=== PATIENT | female | born 1990 | race American Indian/Alaskan Native ===

== ENCOUNTER 2018-01-18 11:56 | Emergency (ER) | payer OTHER ==
[~2018-01-18] VITALS: Ht 180.3 cm; Wt 63.5 kg
[~2018-01-18 11:56] MED LIST: BENADRYL25 MG PO; Bactrim Ds Tab1 EACH PO; CLIN300 PO; ESOM20 PO; IBUP800 PO; K-Dur10 MEQ PO; NAPR500 PO; OXYACE5T PO; Omeprazole20 M1; PROACE100 PO; PROM25 PO; Pepcid20 MG PO; Pepcid40 MG PO; Percocet 5-3251 EACH PO; Prednisone50 MG PO; RXCLIN PO; RXOXYACE PO; SERT50 PO; SUCR1 PO; Triamcinolone A15 G3 EXT; Ultram50 MG PO; Zofran Odt4 MG SL; Zofran Odt8 MG SL; [UNRECOGNIZED DRUG - REMARK]
== END 2018-01-18 13:00 | disposition home or self-care (01) ==
LOC: ER 11:56
DX: S20.212A Contusion of left front wall of thorax, initial encounter (principal); W22.8XXA Striking against or struck by other objects, initial encounter; Z88.0 Allergy status to penicillin; Z88.5 Allergy status to narcotic agent; F17.210 Nicotine dependence, cigarettes, uncomplicated
CPT/HCPCS: 71100; 99283

== ENCOUNTER 2018-01-23 12:18 | Emergency (ER) | payer OTHER ==
[~2018-01-23] VITALS: Ht 152.4 cm; Wt 63.5 kg
[2018-01-23] MEDS ORDERED: Percocet 5-3251 EACH PO (13:29)
== END 2018-01-23 13:48 | disposition home or self-care (01) ==
LOC: ER 12:18
DX: S29.9XXA Unspecified injury of thorax, initial encounter (principal); F17.210 Nicotine dependence, cigarettes, uncomplicated; Z88.5 Allergy status to narcotic agent; Z88.0 Allergy status to penicillin; X58.XXXA Exposure to other specified factors, initial encounter
CPT/HCPCS: 71101; 99283